=== PATIENT | male | born 1965 | race Caucasian/White ===

== ENCOUNTER 2021-03-21 12:02 | Day surgery (SDC) | payer MEDICAID, OTHER ==
[~2021-03-21] VITALS: Ht 188 cm; Wt 98.4 kg
[~2021-03-21 12:02] MED LIST: ALBU6.7H8 INH; CLINDAMYCIN 150 MG/ML, 6ML ONE; DOXY100T PO; LANS15CA53 PO; TRANEXAMIC ACID 100 MG/ML, 10ML ONE; VANCOMYCIN 1,000 MG ONE
[2021-03-21 12:38] VITALS: BP 126/86
[2021-03-21] MEDS ORDERED: [UNRECOGNIZED DRUG - OTHER] (12:38)
[2021-03-21] MEDS ORDERED: ASCORBIC ACID (12:38)
[2021-03-21] MEDS ORDERED: RIVA20TA PO (12:38)
[2021-03-21] MEDS ORDERED: OMEP-110 PO (12:38)
[2021-03-21] MEDS ORDERED: CHLORHEXIDINE 15 ML UDC PO ONE (13:00)
[2021-03-21] MEDS ORDERED: PLEASE ENTER HEIGHT AND WEIGHT MC SCH (13:00)
[2021-03-21] MEDS ORDERED: LACTATED RINGERS 1,000 ML IV SCH (13:00)
[2021-03-21] MEDS ORDERED: FENTANYL PF 250 MCG/5ML ONE (13:09)
[2021-03-21] MEDS ORDERED: MIDAZOLAM 1 MG/ML, 2ML ONE (13:09)
[2021-03-21] MEDS ORDERED: DIAZEPAM 5 MG/ML, 2ML IVPush PRN (13:30)
[2021-03-21] MEDS ORDERED: FENTANYL PF 100 MCG/2ML IV PRN (13:30)
[2021-03-21] MEDS ORDERED: LABETALOL 5MG/ML, 20ML IV PRN (13:30)
[2021-03-21] MEDS ORDERED: ONDANSETRON 2MG/ML, 2ML IVPush PRN (13:30)
[2021-03-21] MEDS ORDERED: MEPERIDINE/PF 25MG/0.5ML IVPush PRN (13:30)
[2021-03-21] MEDS ORDERED: OXYcodone 5 MG/5 ML ORAL.SOL UDC PO PRN (13:30)
[2021-03-21] MEDS ORDERED: hydrALAzine 20 MG/ML, 1ML IV PRN (13:30)
[2021-03-21] MEDS ORDERED: ACETAMINOPHEN 325 MG TABLET PO PRN (13:30)
[2021-03-21] MEDS ORDERED: HYDROmorphone 1 MG/ML, 1ML INJ IVPush PRN (13:30)
[2021-03-21] MEDS ORDERED: PROMETHAZINE 25 MG/ML, 1ML IVPush PRN (13:30)
[2021-03-21] MEDS ORDERED: TRANEXAMIC ACID 100 MG/ML, 10ML ONE (13:58)
== END 2021-03-21 19:20 | disposition home or self-care (01) ==
LOC: OUT 12:02
PROVIDERS: ATTEND Orthopaedic Surgery
DX: S42.291A Other displaced fracture of upper end of right humerus, initial encounter for closed fracture (principal); M25.511 Pain in right shoulder; K21.9 Gastro-esophageal reflux disease without esophagitis; X58.XXXA Exposure to other specified factors, initial encounter; Z20.822 Contact with and (suspected) exposure to COVID-19; Y93.89 Activity, other specified; Y92.89 Other specified places as the place of occurrence of the external cause; Z86.711 Personal history of pulmonary embolism; Z87.891 Personal history of nicotine dependence; Z72.89 Other problems related to lifestyle
CPT/HCPCS: 23472; 24340; 64415; 73020; 87635; C1713; C1776; J2250; J3010; J7120; J3370